=== PATIENT | female | born 1970 | race Caucasian/White ===

== ENCOUNTER → 2020-05-21 | Outpatient (CLI) | payer OTHER ==
--- NOTE | 2020-05-21 11:45 | RADIOLOGY REPORT (SQ) ---
EXAM DESCRIPTION: DUPLEX ART/DORA FLOW COMPLETE IMAGES COMPLETED DATE/TIME: 05/21/2020 8:57 am REASON FOR STUDY: (I70.1)ATHEROSCLEROSIS OF RENAL ARTERY I70.1 ATHEROSCLEROSIS OF RENAL ARTERY COMPARISON: None. TECHNIQUE: Realtime and static grayscale images acquired. Selected color Doppler, velocities and spe ctral images recorded. LIMITATIONS: None. FINDINGS: RIGHT KIDNEY: RENAL ARTERY VELOCITIES: Origin: 110.1 cm/s. Mid: 117.7 cm/s. Hilum: 100.3 cm/s. Segmental Artery: 55 cm/s. RENAL VEIN: Patent. VELOCITY RATIO: 0.88. Normal spectral waveforms. KIDNEY: The right kidney measures 10.7 cm in length. There is no hydronephrosis. LEFT KIDNEY: RENAL ARTERY VELOCITIES: Origin: 140.9 cm/s. Mid: 147.2 cm/s. Hilum: 150.9 cm/s. Segmental Artery: 54.4 cm/s. RENAL VEIN: Patent. VELOCITY RATIO: 1.12. Normal spectral waveforms. KIDNEY: The left kidney measures 10.2 cm in length. The shadowing echogenic focus in the interpolar portion of the left kidney measuring 6 x 8 x 5 mm could represent a calculus. There is no hydroneph rosis. AORTA: 133.6 cm/s. BLADDER: Not assessed. OTHER: No other finding. IMPRESSION: 1. No Doppler evidence of a hemodynamically significant renal artery stenosis. 2. 6 x 8 x 5 mm shadowing echogenic focus in the interpolar portion of the left kidney could represe nt a calculus. There is no hydronephrosis. COMMENT: NORMAL RENAL ARTERY/AORTA VELOCITY RATIO IS LESS THAN OR EQUAL TO 3.5. TECHNICAL DOCUMENTATION: JOB ID: [id number] [employer]- All Rights Reserved Reading location - IP/workstation name: [email or web address]
== END ==
LOC: RAD 07:40
PROVIDERS: ATTEND Internal Medicine
DX: I70.1 Atherosclerosis of renal artery (principal)
CPT/HCPCS: 93975